=== PATIENT | male | born 1995 | race Two or more races ===

== ENCOUNTER 2017-12-28 16:28 | Emergency (ER) | payer MEDICAID ==
[~2017-12-28] VITALS: Ht 167.6 cm; Wt 68.0 kg
[2017-12-28] MEDS ORDERED: BACITRACIN ZINC OINT UDPKT TOP ONE (18:30)
[2017-12-28 19:07] VITALS: BP 116/63
== END 2017-12-28 19:09 | disposition home or self-care (01) ==
LOC: ER 16:28
DX: S61.412D Laceration without foreign body of left hand, subsequent encounter (principal); X58.XXXD Exposure to other specified factors, subsequent encounter
CPT/HCPCS: 99282; X7700; Z7610